=== PATIENT | female | born 1955 | race Caucasian/White ===

== ENCOUNTER 2022-11-09 19:50 | Emergency (ER) | payer OTHER ==
[~2022-11-09] VITALS: Ht 162.6 cm; Wt 77.0 kg
[~2022-11-09 19:50] MED LIST: LISI-275
[2022-11-09 20:30] VITALS: PULSE 90; RESP 11; O2SAT 95
[2022-11-09 20:45] VITALS: PULSE 92
[2022-11-09] MEDS ORDERED: SODIUM CHLORIDE 0.9% 1,000 ML IV ONE (20:45)
[2022-11-09] MEDS ORDERED: FAMOTIDINE (10MG/ML) 2ML VL IV ONE (20:45)
[2022-11-09] MEDS ORDERED: diphenhdrAMINE HCL 50 MG/1 ML VL IV ONE (20:45)
[2022-11-09] MEDS ORDERED: methylPREDNISolone SOD SUCC 40 MG/ML VL IV ONE (20:45)
[2022-11-09] MEDS ORDERED: FAMO20TA10 PO (20:54)
[2022-11-09] MEDS ORDERED: PRED20TA2 PO (20:54)
[2022-11-09] MEDS ORDERED: CETI-176 PO (20:54)
[2022-11-09 22:51] VITALS: BP 125/66; RESP 76; O2SAT 97
== END 2022-11-09 22:50 | disposition home or self-care (01) ==
LOC: ER 19:50 → EDBD 19:50 → ER 22:50
DX: L50.0 Allergic urticaria (principal); I10 Essential (primary) hypertension; E78.5 Hyperlipidemia, unspecified
CPT/HCPCS: 96361; 96374; 96375; 99284; J1200; J2920; J3490; J7030